=== PATIENT | male | born 1990 | race Caucasian/White ===

== ENCOUNTER 2018-11-06 16:56 | Emergency (ER) | payer SELFPAY ==
[~2018-11-06] VITALS: Ht 165.1 cm; Wt 60.3 kg
[2018-11-06 17:03] VITALS: Ht 165.1 cm; Wt 60.3 kg
[2018-11-06 17:34] LABS: BASOPHIL % 0.8 % (0-2); PLATELET COUNT 271 x10^3mcL (130-400); RED CELL DISTRIBUTION WIDTH 13.2 % (11.5-14.5)
[2018-11-06 17:40] LABS: CARBON DIOXIDE 29.2 mmol/L (21-32); CHLORIDE SERUM 104 mmol/L (98-107); GFR1 > 60 mL/min; GLUCOSE SERUM 117 mg/dL (74-106); POTASSIUM SERUM 3.7 mmol/L (3.5-5.1); SODIUM SERUM 141 mmol/L (136-145)
[2018-11-06 17:44] LABS: ALBUMIN 3.5 g/dL (3.4-5.0); ALKALINE PHOSPHATASE 82 U/L (46-116); ALT/SGPT 26 U/L (16-63); AST/SGOT 13 U/L (15-37); BILIRUBIN TOTAL 0.5 mg/dL (0.20-1.00); LIPASE 118 IU/L (73-393); TOTAL PROTEIN, SERUM 7.5 g/dL (6.4-8.2)
[2018-11-06 17:50] LABS: UA SPECIFIC GRAVITY 1.025 (1.005-1.035); microscopic required? YES; urine erythrocyte 2+ (NEGATIVE)
[2018-11-06 19:30] VITALS: BP 110/78
== END 2018-11-06 19:30 | disposition home or self-care (01) ==
LOC: ED 16:56
PROVIDERS: Emergency Medicine
DX: N45.1 Epididymitis (principal)
CPT/HCPCS: 87491; 87591; J0696; J1885; J7030; Q0092